=== PATIENT | female | born 1990 | race Caucasian/White ===

== ENCOUNTER 2016-12-06 19:10 | Emergency (ER) | payer OTHER ==
[2016-12-06 19:18] VITALS: RESP 14; TEMP 98.2
--- NOTE | 2016-12-06 19:28 | EDPHY ---
H & P Stated Complaint: left lower posterior calf pain; ACL repair 11/21 Time Seen by Provider: 12/06/16 19:18 HPI/ROS: CHIEF COMPLAINT: Left calf pain HISTORY OF PRESENT ILLNESS: The patient is a 26-year-old female who is 2 weeks status post arthroscopic repair of her ACL tendon on the left. She is complaining of left lower calf pain. She states that she had upper calf pain about a week ago and had ultrasound 4 days ago that was negative. She is now complaining of pain more around the lower calf. She has not had any swelling. Mild bruising at the knee which has been present since surgery. No chest pain or shortness of breath. No fevers. Wounds are clean dry and intact. REVIEW OF SYSTEMS: Constitutional: denies: chills, fever, recent illness, recent injury EENTM: denies: blurred vision, double vision, nose congestion Respiratory: denies: cough, shortness of breath Cardiac: denies: chest pain, irregular heart rate, lightheadedness, palpitations Gastrointestinal/Abdominal: denies: abdominal pain, diarrhea, nausea, vomiting, blood streaked stools Genitourinary: denies: dysuria, frequency, hematuria, pain Musculoskeletal: See HPI Skin: denies: lesions, rash, jaundice, bruising Neurological: denies: headache, numbness, paresthesia, tingling, dizziness, weakness Hematologic/Lymphatic: denies: blood clots, easy bleeding, easy bruising Immunologic/allergic: denies: HIV/AIDS, transplant EXAM: GENERAL: Well-appearing, well-nourished and in no acute distress. HEAD: Atraumatic, normocephalic. EYES: Pupils equal round and reactive to light, extraocular movements intact, sclera anicteric, conjunctiva are normal. ENT: TMs normal, nares patent, oropharynx clear without exudates. Moist mucous membranes. NECK: Normal range of motion, supple without lymphadenopathy or JVD. LUNGS: Breath sounds clear to auscultation bilaterally and equal. No wheezes rales or rhonchi. HEART: Regular rate and rhythm without murmurs, rubs or gallops. ABDOMEN: Soft, nontender, normoactive bowel sounds. No guarding, no rebound. No masses appreciated. BACK: No CVA tenderness, no spinal tenderness, step-offs or deformities EXTREMITIES: Negative Homans sign, normal range of motion, no edema, no discoloration or bruising. No palpable cords. NEUROLOGICAL: Cranial nerves II through XII grossly intact. Normal speech, normal gait. 5/5 strength, normal movement in all extremities, normal sensation PSYCH: Normal mood, normal affect. SKIN: Warm, dry, normal turgor, no visible rashes or lesions. Source: Patient Exam Limitations: No limitations - Personal History LMP (Females 10-55): 15-21 Days Ago Current Tetanus/Diphtheria Vaccine: Yes Current Tetanus Diphtheria and Acellular Pertussis (TDAP): Yes Tetanus Vaccine Date: 2010 - Medical/Surgical History Hx Asthma: No Hx Chronic Respiratory Disease: No Hx Diabetes: No Hx Cardiac Disease: No Hx Renal Disease: No Hx Cirrhosis: No Hx Alcoholism: No Hx HIV/AIDS: No Hx Splenectomy or Spleen Trauma: No Other PMH: lyme's disease; left ACL repair - Family History Significant Family History: No pertinent family hx - Social History Smoking Status: Never smoked Alcohol Use: Sober Drug Use: None Constitutional: Initial Vital Signs Temperature (C) 36.8 C 12/06/16 19:15 Heart Rate 69 12/06/16 19:15 Respiratory Rate 14 12/06/16 19:15 Blood Pressure 116/74 12/06/16 19:15 O2 Sat (%) 97 12/06/16 19:15 O2 Delivery Mode Room Air Allergies/Adverse Reactions: No Known Allergies Allergy (Unverified 10/29/14 23:21) Home Medications: Medication Instructions Recorded Escitalopram Oxalate 12/06/16 Medical Decision Making - Diagnostics Imaging Results: Imaging Impressions Extremity Venous Study 12/06/16 19:25 Impression: No evidence of deep vein thrombosis in the left lower extremity. Results called and discussed with NERY PONCE M.D. on 12/06/2016 at 20:29 Imaging: Discussed imaging studies w/ associate professor of biology Radiologist ED Course/Re-evaluation: 8:30 p.m. we discussed the ultrasound results. The patient is reassured. We discussed likely causes for pain. She has had some atrophy due to her surgery and is now becoming more mobile. This is likely normal postoperative recovery. She understands and agrees with this. She declines further workup or testing. we discussed indications for returning. Differential Diagnosis: Partial list of the Differential diagnosis considered include but were not limited to; DVT, wound infection, tendonitis, contusion and although unlikely based on the history and physical exam, I also considered sprain, fracture, infection. I discussed these differential diagnoses and the plan with the patient as well as the usual and expected course. The patient understands that the diagnosis is provisional and that in medicine we are not always correct and that further workup is often warranted. Usual and customary warnings were given. All of the patient's questions were answered. The patient was instructed to return to the emergency department should the symptoms at all worsen or return, otherwise to followup with the physician as we discussed. Departure - Departure Disposition: Home, Routine, Self-Care Clinical Impression: Leg pain Qualifiers: Laterality: left Qualified Code(s): M79.605 - Pain in left leg Condition: Good Instructions: Leg Pain (ED) Referrals: [facility] [Other] - As per Instructions
[2016-12-06 20:41] VITALS: BP 122/88; PULSE 80; O2SAT 96
== END 2016-12-06 20:39 | disposition home or self-care (01) ==
DX: M79.605 Pain in left leg (principal)